=== PATIENT | male | born 1995 | race Caucasian/White ===

== ENCOUNTER 2024-05-16 08:57 | Emergency (ER) | payer OTHER ==
[~2024-05-16] VITALS: Ht 175.3 cm; Wt 65.3 kg
[2024-05-16 09:04] VITALS: BP_SYST 130; PULSE 78; RESP 18; TEMP 97.3; O2SAT 100
[2024-05-16 09:30] VITALS: BP_SYST 130; PULSE 78; RESP 18; TEMP 97.3; O2SAT 100
[2024-05-16] MEDS: DIPHTH,PERTUSS(ACELL),TET VAC 0.5 ML VIAL (Tdap) I.M. ONE (09:37)
== END 2024-05-16 09:30 | disposition home or self-care (01) ==
LOC: SED 08:57
DX: S61.313A Laceration without foreign body of left middle finger with damage to nail, initial encounter (principal); Z23 Encounter for immunization; W26.0XXA Contact with knife, initial encounter; Y93.89 Activity, other specified; Y92.89 Other specified places as the place of occurrence of the external cause; Y99.8 Other external cause status
CPT/HCPCS: 90715; 99283

== ENCOUNTER 2024-05-21 17:45 | Emergency (ER) | payer OTHER ==
[~2024-05-21] VITALS: Ht 177.8 cm; Wt 63.5 kg
[2024-05-21 17:52] VITALS: BP_SYST 111; PULSE 88; RESP 18; TEMP 98.3; O2SAT 98
== END 2024-05-21 19:40 | disposition home or self-care (01) ==
LOC: SED 17:45
DX: S61.203D Unspecified open wound of left middle finger without damage to nail, subsequent encounter (principal); X58.XXXD Exposure to other specified factors, subsequent encounter
CPT/HCPCS: 99281